=== PATIENT | male | born 1940 | race Caucasian/White ===

== ENCOUNTER 2019-08-21 08:12 | Outpatient (CLI) | payer MEDICARE, OTHER, SELFPAY ==
[2019-08-26 22:12] LABS: SARS-CoV-2 RNA Undetected (Undetected)
== END 2019-08-21 08:32 ==
PROVIDERS: Visit Provider Nurse Practitioner Adult Health
DX: R50.9 Fever, unspecified (principal); Z03.818 Encounter for observation for suspected exposure to other biological agents ruled out
CPT/HCPCS: U0003

== ENCOUNTER 2021-10-09 15:46 | Emergency (ER) | payer MEDICARE, OTHER, SELFPAY ==
[2021-10-09 15:51] VITALS: BP 138/88; PULSE 57; RESP 18; TEMP 36.7; O2SAT 96
--- NOTE | 2021-10-09 16:00 | DI.CT_ITS ---
Exam(s) CT HEAD ORBITS WO EXAM: CT HEAD ORBITS WO CLINICAL HISTORY: fall, right sided head/periorbital pain,on eliquis. TECHNIQUE: Imaging Protocol: Axial computed tomography images with coronal and sagittal reformatted images were created and reviewed Orbital CT was also obtained without contrast administration. COMPARISON: No exams were available for comparison FINDINGS: There is moderate generalized cerebral atrophy.. No evidence of acute intracranial hemorrhage, mass effect, or midline shift. The orbital structures are unremarkable. The temporal bone structures appear intact. Calvarium: Normal. Visualized Paranasal sinuses/Mastoids: Clear. Scanning of the orbits shows no abnormality of the globes, retrobulbar fat, optic nerves, or extraocu lar musculature. No orbital wall fracture seen. IMPRESSION: Normal cranial CT. No evidence of acute injury. RADIATION DOSE DELIVERED: 1,310.87mGy.cm Total DLP 1,310.87mGy.cm Total DLP !Error CTDIvol DATA REPOSITORY: All CT scans at this facility are submitted to the National Radiology Data Registry (NRDR) Dose Index Registry (DIR) with the [employer] ([employer]). RADIATION OPTIMIZATION: All CT scans at this facility use at least one of these dose optimization te chniques: automated exposure control; mA and/or kV adjustment per patient size (includes targeted exa ms where dose is matched to clinical indication); or iterative reconstruction.
--- NOTE | 2021-10-09 16:12 | ED.GENADUL_ITS ---
Discharge Plan Disposition Patient Disposition: HOME Condition: Stable Discharge Details Clinical Impression: Blunt head trauma Primary Care Provider: Eryn,Local ED Provider: Jewel Knapp Home Meds and New Rx's Prescriptions: Continued spironolactone 25 mg Tablet 12.5 mg PO DAILY levothyroxine 25 mcg Tablet 75 mcg PO DAILY citalopram 20 mg Tablet 20 mg PO DAILY amiodarone 100 mg Tablet 100 mg PO DAILY Eliquis 5 mg Tablet 5 mg PO DAILY sacubitril-valsartan 24-26 mg Tablet 1 tab PO BID Discharge Instructions Instructions: Head Injury (ED) Additional Instructions: your cat scan did not show any concerning findings if you feel more ill, have severe worsening pain or persistent vomit return to the emergency department if you still have headaches in a week follow up with your primary care provider Medical Decision Making 81 yo male who states he has afib and is on eliquis comes in after a fall.He was walking up his basement steps and near the top his foot tripped on a step and he fell forward and hit the right side of his face/head. Denies loc and denies any preceding symptoms to the fall such as headache, chest pain, dizziness/lightheadedness, abdomen pain, dyspnea. He arrives stable and has some mild 2/10 pain in the right head and right temporal region with some bruising just lateral to the right orbit. PERRL, eomi, no pain with eye movements or changes in vision, no midline c spine tenderness. caox4 with no focal motor or sensation deficits. Suspect contusion but will image given he is on anticoagulant to evaluate for ich and less likely orbital fracture imaging negative though they do note a small hyperdensity medial right globe. He has no eye pain and no visible foreign body on exam, does get injections he states with his eye provider so could be related to this. He has no eye pain so doubt globe foreign body. He is stable for d/c, advised to f/u with pcp and return precautions given Differential Diagnosis Differential Diagnosis: tbi, concussion, contusion Imaging Data Radiologic Study: Attestation: I personally reviewed and interpreted this imaging study as follows: Imaging: CT Scan My impression: no acute findings HPI General Mode of arrival: ambulatory . Date/Time Provider Initiated Documentation: 10/09/21 15:56 . Limitations to Documentation: no limitations . Information obtained by: patient . History of Present Illness 81 year old M presents to the emergency department with the chief complaint of head pain s/p fall, described as mild, Quality is described as aching, Patient started experiencing this hour(s) (1) and it has been constant. No relieving factors improve symptom(s), No exacerbating factors reported . Patient notes no other symptoms.. Patient did receive the following treatments prior to arrival, none Related Data Home Medications Medication Instructions Recorded Confirmed amiodarone 100 mg tablet 100 mg PO DAILY 10/09/21 10/09/21 apixaban 5 mg tablet (Eliquis) 5 mg PO DAILY 10/09/21 10/09/21 citalopram 20 mg tablet 20 mg PO DAILY 10/09/21 10/09/21 levothyroxine 25 mcg tablet 75 mcg PO DAILY 10/09/21 10/09/21 sacubitril 24 mg-valsartan 26 mg 1 tab PO BID 10/09/21 10/09/21 tablet spironolactone 25 mg tablet 12.5 mg PO DAILY 10/09/21 10/09/21 Allergies Allergy/AdvReac Type Severity Reaction Status Date / Time No Known Allergies Allergy Unverified 10/09/21 16:00 General Stated Complaint: Trauma DEMETRIO: 3 Review of Systems All systems reviewed & are unremarkable except as noted in HPI and below Constitutional Constitutional: Denies chills, Denies fever(s) and Denies weakness Eyes Eyes: Denies loss of vision ENT Ears, Nose, Mouth, and Throat: Denies change in voice Cardiovascular Cardiovascular: Denies chest pain and Denies dyspnea Respiratory Respiratory: Denies cough and Denies dyspnea Gastrointestinal Gastrointestinal: Denies abdominal pain, Denies nausea and Denies vomiting Neurologic Neurologic: Denies loss of vision and Denies weakness PFSH All Active Problems (Updated 10/09/21 @ 17:18 by Jewel Knapp MD) Blunt head trauma (Acute) Medical History (Updated 10/09/21 @ 17:18 by Jewel Knapp MD) Afib CHF (congestive heart failure) Dementia Hypertension Parkinsonian syndrome Social History Smoking/Tobacco Use Status: Never Smoking risk assessment performed?: Yes Alcohol Intake: former Drug use: Never Substance use type: does not use Do you feel safe at home: Yes Do you feel safe in your relationship?: Yes Exam Const General: no acute distress Orientation: alert HENHI Head: no palpable skull fracture Ears: external ears normal General nose exam: external nose normal Mouth: moist mucous membranes Eyes General: appearance normal, both eyes and all related structures Neck Neck: normal visual inspection Resp Effort & Inspection: normal respiratory effort and able to speak in complete sentences Cardio Rate: regular rate Skin General skin exam: no rashes or lesions noted Neuro General: patient alert and patient oriented x3 Extrem General: normal to inspection Psych Mental Status: mental status grossly normal Course Vital Signs Vital signs: Vital Signs Temperature 36.7 C 10/09/21 15:51 Pulse 57 L 10/09/21 15:51 Respiratory Rate 18 10/09/21 15:51 Blood Pressure 138/88 10/09/21 15:51 Pulse Oximetry 96 10/09/21 15:51 Temperature 36.7 C 10/09/21 15:51 Temperature Source Temporal Artery Scan 10/09/21 15:51 Pulse 57 L 10/09/21 15:51 Respiratory Rate 18 10/09/21 15:51 Respiratory Effort Non-Labored 10/09/21 15:55 Respiratory Depth Normal 10/09/21 15:55 Respiratory Pattern Normal 10/09/21 15:55 Blood Pressure 138/88 10/09/21 15:51 Blood Pressure Position Sitting 10/09/21 15:51 Pulse Oximetry 96 10/09/21 15:51 Oxygen Delivery Method Room Air 10/09/21 15:51 Oxygen Flow Rate 0 10/09/21 15:51 Pain Level 0 10/09/21 15:51
--- NOTE | 2021-10-09 17:30 | DI.VRAD_ITS ---
PROCEDURE INFORMATION: Exam: CT Head Without Contrast Exam date and time: 10/09/2021 4:33 PM Age: 81 years old Clinical indication: Injury or trauma; Patient HX: Fall, right sided head/periorbital pain, on eliquis TECHNIQUE: Imaging protocol: Computed tomography of the head without contrast. COMPARISON: No relevant prior studies available. FINDINGS: Brain: There is no acute intracranial hemorrhage, mass effect or midline shift. No large acute territorial infarct identified. There are patchy regions of hypodensity in the periventricular and subcortical white matter, likely on the basis of chronic microvascular ischemic disease. Cerebral ventricles: The ventricles and sulci are prominent in size, which is at least in part due to global cerebral volume loss. Paranasal sinuses: Visualized sinuses are unremarkable. No fluid levels. Mastoid air cells: Visualized mastoid air cells are well aerated. Bones/joints: No acute fracture. Soft tissues: Mild subcutaneous soft tissue hematoma is seen in the right periorbital region. IMPRESSION: No acute intracranial hemorrhage, mass effect or midline shift. PROCEDURE INFORMATION: Exam: CT Maxillofacial Without Contrast Exam date and time: 10/09/2021 4:33 PM Clinical indication: Injury or trauma; Patient HX: Fall, right sided head/periorbital pain, on eliquis TECHNIQUE: Imaging protocol: Computed tomography of the of the face without contrast. COMPARISON: No relevant prior studies available. FINDINGS: Orbital cavities: A focus of hyperdensity is seen at the medial aspect of the right anterior globe, which may be postsurgical or represent a small foreign body (image 14, series 3). No orbital hematoma. Bones/joints: No acute fracture. Paranasal sinuses: No air-fluid levels in the sinuses visualized. Soft tissues: Subcutaneous soft tissue hematoma is seen in the right periorbital region. . IMPRESSION: 1. Subcutaneous hematoma in the right periorbital region without underlying fracture. No retrobulbar hematoma. 2. Small hyperdensity at the medial aspect of the right globe, which may be postsurgical or represent a small foreign body. Correlate with physical examination findings and clinical history. Dictated and Authenticated by: Neena Ramirez MD. Ordering:GEORGE Holloway MD
[2021-10-09 17:48] VITALS: BP 133/70; PULSE 55; RESP 18; O2SAT 95
== END 2021-10-09 17:49 | disposition home or self-care (01) ==
PROVIDERS: Emergency Provider Emergency Medicine
DX: S09.90XA Unspecified injury of head, initial encounter (principal); I11.0 Hypertensive heart disease with heart failure; I50.9 Heart failure, unspecified; I48.91 Unspecified atrial fibrillation; G20 Parkinson's disease; F02.80 Dementia in other diseases classified elsewhere, unspecified severity, without behavioral disturbance, psychotic disturbance, mood disturbance, and anxiety; Z79.01 Long term (current) use of anticoagulants; W10.9XXA Fall (on) (from) unspecified stairs and steps, initial encounter; W22.8XXA Striking against or struck by other objects, initial encounter; Y93.01 Activity, walking, marching and hiking
CPT/HCPCS: 99284; 70450; 70480; 99282